=== PATIENT | female | born 1995 | race Caucasian/White ===

== ENCOUNTER 2022-12-05 11:26 | Emergency (ER) | payer BC, OTHER ==
[2022-12-05] MEDS ORDERED: Sodium Chloride 0.9% 10 ML Syringe FLUSH PRN (12:25)
[2022-12-05] MEDS ORDERED: Sodium Chloride 0.9% 100 ML IV SCH (12:45)
[2022-12-05] MEDS ORDERED: Sodium Chloride 0.9% 10 ML Syringe FLUSH ONE (12:45)
[2022-12-05] MEDS ORDERED: Iopamidol 755 Mg/ML 100 ML Bottle IVPUSH ONE (12:45)
[2022-12-05 13:23] LABS: ESTIMATED GFR 91 mL/min (>60)
[2022-12-05 19:00] VITALS: BP 116/70; PULSE 80
== END 2022-12-05 15:30 | disposition home or self-care (01) ==
LOC: JD.ED 11:26
DX: S20.211A Contusion of right front wall of thorax, initial encounter (principal); N39.0 Urinary tract infection, site not specified; Z79.899 Other long term (current) drug therapy; Y04.8XXA Assault by other bodily force, initial encounter
CPT/HCPCS: 36415; 70450; 70498; 71260; 74177; 80053; 81001; 83690; 84702; 85025; 87086; 99284; J3490; Q9967; 87088; 87186